=== PATIENT | female | born 1950 | race Caucasian/White ===

== ENCOUNTER → 2020-11-06 | Outpatient (CLI) | payer MEDICARE, OTHER ==
[2006-03-07 17:08] VITALS: TEMP 99.3
[~2020-11-06] MED LIST: ARICEPT10 MG PO; FERRO-TIME325 MG PO; GLYNASE PRES-T1.5 MG PO; LEXAPRO20 MG PO; SYNTHROID0.125 MG/T PO
[2020-11-06 18:15] LABS: BASO # 0.1 (0.0-0.2); BASO % 0.7 % (0.0-2.0); EOS # 0.6 (0.0-0.7); EOS % 9.3 % (0-4.0); GRAN # 3.1 (1.4-6.5); GRAN % 46.8 % (42.2-75.2); HEMATOCRIT 42.3 % (37.0-47.0); LYMPH # 2.5 (1.2-3.4); LYMPH % 37.5 % (20.0-51.0); MEAN CELL VOLUME 93 fl (80.0-100.0); MEAN CORPUSCULAR HEMOGLOBIN 28 pg (27.0-31.0); MEAN CORPUSCULAR HGB CONC 31 g/dl (33.0-37.0); MEAN PLATELET VOLUME 11.3 fl (7.4-10.4); MONO # 0.3 (0.1-0.6); MONO % 5.1 % (1.7-9.3); PLATELET COUNT 398 K/mm3 (130-400); RED BLOOD COUNT 4.57 M/mm3 (4.10-5.30); REDCELL DISTRIBUTION WIDTH-CV 15.1 % (11.5-14.5)
[2020-11-06 18:33] LABS: CALCIUM 9.8 mg/dL (8.4-10.2); CREATININE, serum 1.03 (0.52-1.25)
[2020-11-06 19:02] LABS: THYROID STIMULATING HORMONE 0.024 uIU/mL (0.465-4.680)
== END ==
LOC: ZLAB.STJ 14:38
PROVIDERS: Family Medicine
DX: E11.9 Type 2 diabetes mellitus without complications (principal); I10 Essential (primary) hypertension

== ENCOUNTER → 2020-11-07 | Outpatient (CLI) | payer MEDICARE, OTHER ==
[2020-11-07 21:05] LABS: CALCIUM 8.9 mg/dL (8.4-10.2); CREATININE, serum 0.88 (0.52-1.25); POTASSIUM 5.2 mmol/L (3.4-5.0)
== END ==
LOC: ZLAB.STJ 20:43
PROVIDERS: Family Medicine
DX: I10 Essential (primary) hypertension (principal)

== ENCOUNTER → 2020-11-15 | Outpatient (CLI) | payer OTHER | LOC: ZLAB.STJ 06:10 | DX: R31.9 Hematuria, unspecified (principal); J12.82 Pneumonia due to coronavirus disease 2019 ==

== ENCOUNTER → 2020-11-18 | Outpatient (REF) | LOC: ZLAB.STJ 20:41 | DX: E87.5 Hyperkalemia (principal) ==